=== PATIENT | male | born 1990 | race Caucasian/White ===

== ENCOUNTER → 2023-11-14 | Outpatient (CLI) | payer BC, SELFPAY ==
--- NOTE | 2023-11-14 06:36 | MRI_ITS ---
STUDY: MRI RIGHT SHOULDER REASON FOR EXAM: Male, 33 years old. Labral tear, pain, weakness, decreased range of motion. TECHNIQUE: Standardized fat and water weighted pulse sequences were obtained in all 3 orthogonal planes. COMPARISON: None. FINDINGS: There is minimal supraspinatus tendinosis without a full-thickness tear. Normal infraspinatus tendon. Normal subscapularis tendon. Normal teres minor tendon. Normal supraspinatus muscle. Normal infraspinatus muscle. Normal subscapularis muscle. Normal teres minor muscle. Normal glenohumeral articulation. There is mild enthesopathic subcortical edema/cyst formation in the greater tuberosity of the humeral head. Normal biceps labral complex. Normal intracapsular long biceps tendon. Normal labrum. Normal capsulo-ligamentous complex. Normal rotator interval. There is hypertrophic acromioclavicular arthrosis, with inferior osteophyte formation, with mild effacement of the supraspinatus myotendinous junction (coronal T2 series 6 images 11-13). There is a Type II morphology (curved), with a neutral orientation. There is no subacromial-subdeltoid bursal fluid. Normal visualized coracohumeral and coracoacromial ligaments. Normal quadrilateral space. Normal axillary space. Normal deltoid muscle. Normal trapezius muscle. MRI/Upper Ext Joint Only(Routine) IMPRESSION: Minimal supraspinatus tendinosis without a full-thickness rotator cuff tear. Hypertrophic acromioclavicular arthrosis, with inferior osteophyte formation, with mild effacement of the supraspinatus myotendinous junction. No discrete labral tear. Electronically Signed: Joshua Steel MD at 8:53 EST ,
== END | disposition home or self-care (01) ==
DX: M25.311 Other instability, right shoulder (principal)
CPT/HCPCS: 73221

== ENCOUNTER 2024-04-04 17:00 | Outpatient (RCR) | payer BC, SELFPAY ==
--- NOTE | 2023-12-20 17:39 | HP.PTEVAL_ITS ---
Patient's Visit Information Visit Information Visit Information: LOIS WALTER is a 33 year old M referred to Physical Therapy by EDY CALI with a diagnosis of RIGHT SHOULDER DIAGNOSTICS SCOPE LABRAL ,SLAP REPAIR(12/01/23). Date of Evaluation: 12/20/23 Physical Therapist: David Allan, PT, Cert MDT, OCS Visit Plan Frequency: 2-3x /Week Duration: 4-6 Weeks Plan: S/P SLAP REPAIR 12/01/23 SLING 4 WEEKS SEE GUIDELINES FOR PROGRESSION ROM AND STRENGTH PT INTERVENTIONS MANUAL THERAPY ,PROM /ISOMETRICS PROGRESS TO AROM ,STRENGTHENING RTC/SCAPULAR ,POSTURAL EX'S AND CP/MHP Subjective Subjective: This 33 y/o male presents to physical therapy with right shoulder labral tear ,slap tear and loose body. This patient underwent s/p right shoulder diagnostic scope labral slap repair on 12/01/23 at [facility] in [facility] by Edy Cali. Seen DR 12/04 recommend sling 4 weeks. RTD 12/24/23. 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 Patient no pain. Denies paresthesia/tingling-. Patient has no use of ADLS and self hygiene. 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 Objective Objective: POSTURE mild forward posture rounded shoulders head forward NEURO: denies paresthesia/tingling SKIN: incision well PROM: shoulder flexion 75 degrees ,ER 15 degrees ,IR 25 degrees ,abduction 70 d egrees ELBOW WNL MMT: NT 0 PEAK FORCE Balance/Special Test Scores Quick DASH Score: 68.1800 Goals Goal 1:: Patient to be I with HEP for shoulder SLAP repair Goal Time Frame: 8-12 Weeks Goal 2:: Patient to improve AROM shoulder flexion /abduction 150 degrees and ER 90 degrees and IR L1 to improve function and ADLS Goal Time Frame: 8-12 Weeks Goal 3:: Patient to improve peak force RTC and deltoid by 20-25# strength to return to prior level of activity Goal Time Frame: 8-12 Weeks Goal 4:: Patient to improve Quick dash by 5 points to improve QOL and function Goal Time Frame: 8-12 Weeks Goal 5:: Patient to improve quick dash by 10 points > to improve QOL and function Goal Time Frame: 8-12 Weeks Rehabilitation Potential Physical Therapy Diagnosis: This patient underwent s/p right shoulder SLAP repair 12/01/23 with decrease ROM ,strength and function to return to prior level of function thus benefit from skilled PT Rehabilitation Potential: Good Anticipated Interventions Patient/Client Instruction: Educate patient on: Condition and Plan of Care For the Purpose of:: To decrease pain, To increase ROM, To improve muscle performance and motor function, To improve ability to perform ADL's, To increase tolerance to activity/condition/position, To improve ability of physical actions for home/community/work/leisure, To improve health of tissue, To decrease soft tissue restriction and To increase flexibility/ROM Therapeutic Exercise to Include: Strength training, Postural training, Flexibilty training, Passive ROM, Active ROM and Scapular Strength/Stabilization Comment: RTC/SCAPULAR For the Purpose of:: To decrease pain, To increase ROM, To improve muscle performance and motor function, To improve ability to perform ADL's, To increase tolerance to activity/condition/position, To improve ability of physical actions for home/community/work/leisure, To improve health of tissue, To decrease soft tissue restriction, To increase flexibility/ROM and To improve tolerance to ADL's Manual Therapy Techniques to Include: Mobilization and Passive ROM Comment: G-H ,SCAPULAR For the Purpose of:: To decrease pain, To increase ROM, To improve nutrient delivery to tissue, To increase oxygenation perfusion, To improve health of tissue and To decrease soft tissue restriction TENS: Yes IF ES: Yes Cryotherapy (ice pack, ice massage): Yes Thermo therapy (hot pack): Yes For the Purpose of:: To decrease pain, To increase ROM, To increase oxygenation perfusion and To improve muscle performance and motor function Text: Thank you for the opportunity to evaluate your patient. For Medicare and Medicare HMO plans, please review the plan of care and approve it. It will need to be FAXED BACK to us at [phone] for Medicare purposes. For Medicare only, by signing this I certify the plan of care. Please let me know if there are questions or concerns regarding this plan of care. Physician Signature: Date:
--- NOTE | 2024-04-04 18:41 | HP.PTDCSUM ---
Discharge Summary D/C summary: It has been my pleasure to treat LOIS WALTER referred by JOAN CALI, with the diagnosis of RIGHT SHOULDER DIAGNOSTICS SCOPE LABRAL ,SLAP REPAIR(12/01/23) for a total of 25 visit(s). Discharge Date: Please see the following information for a summary of their discharge status. Subjective Subjective: Doing good Pain R Shoulder: Pain Intensity (Out of 10): 0 Overall Improvement % Improvement: 90 Objective Objective/Function: RTC 4/5 ER /IR 4/5 AT SIDE AND 90 DEGREES ,SUPRASPINATUS 4/5 ,DELTOID 4/5 ER 95 degrees ,shoulder abduction 160 degrees .abduction 160 degrees Goals Goal 1:: Patient to be I with HEP for shoulder SLAP repair Goal Progress: Goal Met Goal 2:: Patient to improve AROM shoulder flexion /abduction 150 degrees and ER 90 degrees and IR L1 to improve function and ADLS Goal Progress: Goal Met Goal 3:: Patient to improve peak force RTC and deltoid by 20-25# strength to return to prior level of activity( new goal) Goal Progress: Goal Met Goal 4:: Patient to initiate throwing program ( new goal) Goal 5:: Patient to improve quick dash by 10 points > to improve QOL and function Goal Progress: Goal Met Plan Plan: D/C START THROWING PROGRES D/C Information d/c sentence: If there are questions or concerns regarding this patient's physical therapy, please feel free to call me at [phone]. Thank you for the referral of this patient. Sincerely, David Allan, PT, Cert MDT, OCS Balance/Gait/Functional tests Balance/Special Test Scores Quick DASH Score: 2.2725 Improvement % Improvement: 90
== END 2024-04-04 19:00 | disposition home or self-care (01) ==
LOC: PT 17:00
DX: S43.431D Superior glenoid labrum lesion of right shoulder, subsequent encounter (principal)
CPT/HCPCS: 97110; 97140; 97161; 97530